=== PATIENT | male | born 1985 | race Caucasian/White ===

== ENCOUNTER 2020-12-16 15:45 | Emergency (ER) | payer OTHER ==
[2020-12-16] MEDS ORDERED: IBUPROFEN600 MG PO (16:32)
== END 2020-12-16 16:40 | disposition home or self-care (01) ==
LOC: ER1 15:45
DX: S49.92XA Unspecified injury of left shoulder and upper arm, initial encounter (principal); W19.XXXA Unspecified fall, initial encounter; Y92.009 Unspecified place in unspecified non-institutional (private) residence as the place of occurrence of the external cause
CPT/HCPCS: 73030; 99283